=== PATIENT | female | born 1960 | race African-American/Black ===

== ENCOUNTER 2018-12-03 10:30 | Emergency (ER) | payer MEDICARE ==
[~2018-12-03] VITALS: Ht 152.4 cm; Wt 72.6 kg
--- OUTSIDE RECORDS SUMMARY | 2018-12-03 10:32 | XMS REPORT | Summary of Care ---
Author Author Austyn Avitia Organization Unknown Address [facility] Phone Unavailable Care Team Providers Care Social Services Director Name Role Phone VIRIDIANA BEARD M.D. Unavailable Unavailable Austyn Avitia Unavailable Unavailable Fabiola Armenta MD Unavailable Unavailable Unavailable Unavailable Functional Status Name Dates Details Functional status health issues are not documented Status: Name Dates Details Cognitive status health issues are not documented Status: Problems Name Dates Details Other hyperlipidemia (272.4, E78.4) Status: Active Essential hypertension, benign (401.1, I10) Status: Active Lumbago (724.2, M54.5) Status: Active Normal routine physical examination (V70.0, Z00.00) Status: Active Essential (primary) hypertension (401.9, I10) Status: Active 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 Active Hydrocodone-Acetaminophen 10-325 MG Oral Tablet TAKE 1 TABLET EVERY 8 HOURS NEEDED FOR PAIN. * Quantity: 90 Refills: 5 Active TiZANidine HCl - 4 MG Oral Tablet TAKE 1 TABLET TWICE DAILY. * Quantity: 60 Refills: 3 VIRIDIANA BEARD M.D. Active Amitriptyline HCl - 25 MG Oral Tablet TAKE 1 TABLET AT BEDTIME. * Refills: 0 Active MetFORMIN HCl ER 500 MG Oral Tablet Extended Release 24 Hour TAKE 1 TABLET Daily with dinner * Quantity: 30 Refills: 11 VIRIDIANA BEARD M.D. * Start : 19-Jul-2017 Active Hydrocodone-Acetaminophen 10-325 MG Oral Tablet TAKE 1 TABLET TWICE DAILY PRN * Quantity: 60 Refills: 0 VIRIDIANA BEARD M.D. * Start : 06-Oct-2017 Active Lyrica 50 MG Oral Capsule TAKE 1 CAPSULE EVERY 12 HOURS * Quantity: 60 Refills: 3 CHIRAG Harkins, VIRIDIANA * Start : 06-Oct-2017 Active Allergies and Adverse Reactions Name Dates Details Glumetza TB24 (Allergy) Status: Active Past Medical History Name Dates Details History of Diabetes Mellitus Poorly Controlled (250.02) Status: Resolved History of Malignant neoplasm (199.1, C80.1) Status: Resolved History of Proteinuria (791.0, R80.9) Status: Resolved Procedures Procedure Dates Details History of Breast Surgery Mastectomy Completed History of Lumbar vertebral fusion Completed History of Gastric bypass surgery Completed History of Complete colonoscopy Completed Immunization Name Dates Details Tdap on: 16-Feb-2017 Family History Name Dates Details Family history of Diabetes Mellitus (V18.0) Comments: Family History Status: Active Family history of Hyperlipidemia Comments: Family History Status: Active Family history of Hypertension (V17.49) Comments: Family History Status: Active Family history of Reported Family History Of Heart Disease Comments: Family History Status: Active Name Dates Details Family history of hypercholesterolemia (V18.19, Z83.42) Status: Active Name Dates Details Family history of Status: Active Family history of alcoholism (V17.0, Z81.1) Status: Active Social History Name Dates Details - Status: Name Dates Details Never smoker Vital Signs Date Test Result Details No Known Vitals to report Results Date Description Value Details Results not documented Plan of Care Name Dates Details Planned Observations Planned Goals not documented Instructions Name Dates Details Instructions not documented Encounters Appointment; FABIOLA ARMENTA M.D. Encounter Diagnosis: Problem not documented On: 16-Oct-2016 9:15 Appointment; FABIOLA ARMENTA M.D. Encounter Diagnosis: Problem not documented On: 16-Apr-2017 13:30 Appointment; VIRIDIANA BEARD M.D. Encounter Diagnosis: Problem not documented On: 25-Jun-2017 13:00 Appointment; VIRIDIANA BEARD M.D. Encounter Diagnosis: Problem not documented On: 19-Jul-2017 10:30
--- OUTSIDE RECORDS SUMMARY | 2018-12-03 10:32 | XMS REPORT ---
Author Author [facility] Address Unknown Phone Unavailable Care Team Providers Care Agency Recruiter Name Role Phone BETY NASH Unavailable Unavailable Problems This patient has no known problems. Allergies, Adverse Reactions, Alerts This patient has no known allergies or adverse reactions. Medications This patient has no known medications. Results Test Description Test Time Test Comments Text Results Atomic Results Result Comments RBC, Crossmatch 2 2017-03-22 01:52:00 Product 1 Code (test code=PRODCODE1) E0336 Unit 1 ID (test code=UNITID1) [id number] Unit 1 ABO (test code=UNITABO1) O Unit 1 Rh (test code=UNITRH1) POS Unit 1 Interp (test code=UNITINTERP1) Compatible Unit 1 Status (test code=UNITSTAT1) RE Product 2 Code (test code=PRODCODE2) E0336 Unit 2 ID (test code=UNITID2) [id number] Unit 2 ABO (test code=UNITABO2) O Unit 2 Rh (test code=UNITRH2) POS Unit 2 Interp (test code=UNITINTERP2) Compatible Unit 2 Status (test code=UNITSTAT2) RE Comprehensive Metabolic [id number] 05:11:00* Test Item Value Reference Range Comments Sodium (test code=NA) 138 mmol/L 135-145 Potassium (test code=K) 3.6 mmol/L 3.5-5.1 Chloride (test code=CL) 101 mmol/L 98-105 Carbon Dioxide (test code=CO2) 26 mmol/L 22-29 Glucose (test code=GLU) 135 mg/dL 70-115 Blood Urea Nitrogen (test code=BUN) 6 mg/dL 6-20 Creatinine (test code=CREAT) 0.7 mg/dL 0.5-0.9 Calcium (test code=CA) 8.1 mg/dL 8.3-10.5 Prot Total (test code=TP) 6.2 g/dL 6.4-8.3 Albumin (test code=ALB) 3.6 g/dL 3.5-5.2 A/G Ratio (test code=AGRATIO) 1.4 Ratio Globulin (test code=GLOB) 2.6 2.9-3.1 Bili Total (test code=TBIL) 0.3 mg/dL 0.1-0.9 Alk Phos (test code=APHOS) 69 U/L 35-104 AST (test code=AST) 67 U/L 1-32 ALT (test code=ALT) 49 U/L 1-33 BUN/Creatinine Ratio (test code=BCRATIO) 8.6 Anion Gap (test code=AGAP) 11 mmol/L 7-16 Estimated GFR (test code=GFR) >60 mL/min/1.73m2 eGFR (estimated Glomerular Filtration Rate) is an estimated value,calculated from the patient's serum creatinine using the MDRD equation.It is NOT the patient's actual GFR. The eGFR provides a more clinicallyuseful measure of kidney disease than serum creatinine alone.This calculation takes sex and race into account, if the informationis provided. If the race is not provided, and the patient isAfrican-[place], multiply by 1.212. If sex is not provided, and thepatient is female, multiply by 0.742. Results for patients <18 years ofage have not been validated by the MDRD study and should be interpretedwith caution.eGFR Result Interpretation:eGFR > or=60 is in the Normal RangeeGFR < 60 may mean kidney diseaseeGFR < 15 may mean kidney failureRanges recommended by the National Kidney Foundat ion,http://nkdep.nih.gov CBC with [id number] 05:08:00* Test Item Value Reference Range Comments WBC (test code=WBC) 8.2 K/cumm 4.4-10.5 RBC (test code=RBC) 3.91 M/cumm 3.75-5.20 Hemoglobin (test code=HGB) 10.9 gm/dL 12.2-14.8 Hematocrit (test code=HCT) 34.8 % 36.5-44.4 MCV (test code=MCV) 89.1 fL 80-100 MCH (test code=MCH) 27.9 pg 27.0-32.5 MCHC (test code=MCHC) 31.4 g/dL 32.0-37.5 RDW (test code=RDW) 13.6 % 11.5-14.5 Platelet Count (test code=PLTCT) 212 K/cumm 140-440 MPV (test code=MPV) 8.0 fL Diff Method (test code=DIFFM) Auto Neutrophil (test code=NEUT) 75.1 % 36-70 Lymphocyte (test code=LYMPH) 18.4 % 12-44 Monocyte (test code=MONO) 5.2 % 0-11 Eosinophil (test code=EOS) 1.3 % 0-7 Basophil (test code=BASO) 0.1 % 0-2 Neutro Abs (test code=ANEUT) 6.2 K/cumm 1.6-7.4 Lymph Abs (test code=ALYMPH) 1.5 K/cumm 0.5-4.6 Terrell Abs (test code=AMONO) 0.4 K/cumm 0.0-1.2 Eos Abs (test code=AEOS) 0.10 K/cumm 0.00-0.74 Baso Abs (test code=ABASO) 0.0 K/cumm 0.00-0.21 POC Glucose, [id number] 06:43:00* Test Item Value Reference Range Comments POC Glucose (test code=POCGLUC) 100 mg/dL 70-115 If you consider your patient critically ill, the Thomas Accu-Chek InformII metershould not be used for Glucose determinations.Draw a venous Glucose and send to the Main Lab for Analysis. Antibody Screen - [id number] 14:20:00* Test Item Value Reference Range Comments Antibody Screen (test code=ABSCR) Negative Blood Type and [id number] 13:24:00* Test Item Value Reference Range Comments ABO type (test code=ABO) O Rh Type (test code=RH) Positive Partial Thromboplastin [id number] 12:43:00* Test Item Value Reference Range Comments aPTT (test code=PTT) 30.00 seconds 24.39-37.25 Prothrombin [id number] 12:43:00* Test Item Value Reference Range Comments PT (test code=PT) 11.30 seconds 9.78-13.35 INR (test code=INR) 0.99 Ratio 0.6-1.2
[2018-12-03] MEDS ORDERED: TIZANIDINE HCL2 MG PO (10:42)
[2018-12-03] MEDS ORDERED: NORCO 10-325 T1 EACH PO (10:42)
--- NOTE | 2018-12-03 11:20 | NUR ---
MEDICATED PT FOR PAIN AND NAUSEA ORDERED. EKG DONE. PT ON VENTI MASK @ 50%. PENDING FURTHER ORDERS AT THIS TIME.
[2018-12-03] MEDS ORDERED: KETOROLAC TROMETHAMINE 60 MG/2 ML VIAL IM ONE (11:30)
[2018-12-03] MEDS ORDERED: ONDANSETRON HCL 4 MG ORAL DISINTEGRATING TAB PO ONE (11:30)
[2018-12-03 12:22] VITALS: BP 117/74
[2018-12-03] MEDS ORDERED: HYDROMORPHONE 2MG/ML 2 MG/ML ML IV ONE (13:00)
== END 2018-12-03 12:10 | disposition home or self-care (01) ==
LOC: ER 10:30
DX: R51 Headache (principal); R11.0 Nausea; T58.11XA Toxic effect of carbon monoxide from utility gas, accidental (unintentional), initial encounter; Y92.008 Other place in unspecified non-institutional (private) residence as the place of occurrence of the external cause; Z85.3 Personal history of malignant neoplasm of breast
CPT/HCPCS: 93005; 99283; J1170; J1885; Q0162